=== PATIENT | female | born 1955 | race Two or more races ===

== ENCOUNTER → 2017-08-31 | Emergency (ER) | payer MEDICAID ==
[~2017-08-31] VITALS: Ht 165.1 cm; Wt 68.9 kg
[~2017-08-31] MED LIST: AZITHROMYCIN250 MG ORAL; DICLOFENAC SODI50 MG ORAL; DILAUDID2 MG ORAL; HYDROmorphone 1mg/ml Carpuject IM ONE; IBUPROFEN600 MG ORAL; MYLANTA30 M1 PO; NORCO 5-325 TA1 EACH ORAL; OMEPRAZOLE20 M2 ORAL; ONDANSETRON ODT4 MG ORAL; PERCOCET 5-3251 EACH ORAL
[2017-08-31 23:02] VITALS: BP 125/76
--- NOTE | 2017-08-31 23:48 | Emergency Room Report ---
History of Present Illness General Chief Complaint: Pain Source: Patient Present Illness HPI This is a 61-year-old female who had arthroscopic surgery on her left shoulder yesterday. She was just discharged home with [facility]. She was in the hospital and was getting hydromorphone. She presents with chief complaint of left shoulder pain. Unable to sleep. No fever or chills. no nausea no vomiting. No fever or chills. No redness. Allergies: Coded Allergies: ACETAMINOPHEN (Verified Allergy, Unknown, 08/31/17) HYDROCODONE (Verified Allergy, Unknown, 08/31/17) MORPHINE (Verified Allergy, Unknown, 08/31/17) Uncoded Allergies: PLASTIC TAPE (Allergy, Unknown, 08/31/17) Patient History Past Medical History: see triage record, old chart reviewed Past Surgical History: other Pertinent Family History: none Social History: Denies: smoking Last Menstrual Period: None Now: No Immunizations: other Reviewed Nursing Documentation: PMH: Agreed, PSxH: Agreed Nursing Documentation-PMH Hx Cardiac Problems: Yes - 'I have low blood pressure' Hx Hypertension: No Hx Pacemaker: No Hx Asthma: No Hx COPD: No Hx Diabetes: No Hx Cancer: No Hx Gastrointestinal Problems: No Hx Dialysis: No Hx Neurological Problems: No Hx Cerebrovascular Accident: No Hx Seizures: No Review of Systems Eye: Denies: eye pain, blurred vision ENT: Denies: ear pain, nose congestion, throat swelling Respiratory: Denies: cough, shortness of breath Cardiovascular: Denies: chest pain, palpitations Gastrointestinal: Denies: abdominal pain, diarrhea, nausea, vomiting Musculoskeletal: Reports: joint pain, Denies: back pain Skin: Denies: rash Neurological: Denies: headache, numbness Endocrine: Denies: increased thirst, increased urine Hematologic/Lymphatic: Denies: easy bruising All Other Systems: negative except mentioned in HPI Physical Exam Vital Signs Date Time Temp Pulse Resp B/P (MAP) Pulse Ox O2 Delivery O2 Flow Rate FiO2 08/31/17 23:02 98.2 85 18 125/76 98 Room Air vitals normal Sp02 EP Interpretation: reviewed, normal General Appearance: well appearing, no apparent distress, alert Head: normocephalic, atraumatic Eyes: bilateral eye PERRL, bilateral eye EOMI ENT: hearing grossly normal, normal pharynx Neck: full range of motion, supple, no meningismus Respiratory: chest non-tender, lungs clear, normal breath sounds Cardiovascular #1: regular rate, rhythm, no murmur Gastrointestinal: normal bowel sounds, non tender, no mass, no organomegaly, no bruit, non-distended Musculoskeletal: back normal, gait/station normal, other - left shoulder in dressing and sling. Psychiatric: mood/affect normal Skin: warm/dry Medical Decision Making Diagnostic Impression: Primary Impression: Post-operative pain ER Course Patient with postoperative pain. No evidence of infection. Better after a dose of hydromorphone. We'll discharge home. Last Vital Signs Date Time Temp Pulse Resp B/P (MAP) Pulse Ox O2 Delivery O2 Flow Rate FiO2 08/31/17 23:02 98.2 85 18 125/76 98 Room Air Status: improved Disposition: HOME, SELF-CARE Condition: Stable Scripts Oxycodone/Acetaminophen 5-325* (PERCOCET 5-325 MG TABLET*) 1 Each Tablet 1 TAB ORAL Q6H Y for For Pain, #30 TAB Prov: RAQUEL AGUILA M.D. 08/31/17 Referrals: [facility],REFERRING (PCP) Additional Instructions: Followup your orthopedic Dr. as scheduled. Return if symptom worsen. Ice pack to the area. RAQUEL AGUILA M.D. Aug 31, 2017 23:48
== END | disposition home or self-care (01) ==
LOC: EMR 23:19
DX: G89.18 Other acute postprocedural pain (principal); M25.512 Pain in left shoulder; Z88.6 Allergy status to analgesic agent
CPT/HCPCS: 96372; 99284; J1170

== ENCOUNTER 2019-06-10 11:27 | Inpatient (IN) | payer MEDICAID ==
[~2019-06-10] VITALS: Ht 165.1 cm; Wt 65.8 kg
[~2019-06-10 11:27] MED LIST changes: -HYDROmorphone 1mg/ml Carpuject IM ONE
[2019-06-10 11:45] VITALS: BP 118/78
--- NOTE | 2019-06-10 11:45 | NUR ---
ED Nurse Note: PT WALKED IN TO ER TODAY FROM HOME. AOX4. PT C/O COUGH, HEADACHE, AND SORE THROAT X 3 DAYS AGO. PT STATES SHE WAS SEEN AT AN ER IN [place] AND WAS DIANOSED WITH PNEUMONIA. PT WAS PRESCRIBED AMOXICILLIN-CLAV 875/125MG AND HAS BEEN TAKING MEDICATIONS BUT FEELS SYMPTOMS ARE WORSENING. AT BEDSIDE, RR17, O2 SAT 96% ON RA. NO SIGNS OF RESPIRATORY DISTRESS, RETRACTIONS, OR ACCESSORY MUSCLE USE NOTED. PT AFEBRILE.
--- NOTE | 2019-06-10 12:33 | NUR ---
ED Nurse Note: XRAY AT BEDSIDE BUT PT REFUSED.
--- NOTE | 2019-06-10 12:36 | NUR ---
ED Nurse Note: DR LEE AT BEDSIDE FOR EVALUATION. PT AGREES TO CHEST XRAY.
[2019-06-10] MEDS ORDERED: Albuterol/Ipratropium 3ml neb HHN ONE (12:45)
[2019-06-10] MEDS ORDERED: Ampicillin/Sulbactam Sod 3 GM in NS 110 ML IV SCH (12:45)
--- NOTE | 2019-06-10 12:56 | NUR ---
ED Nurse Note: RT AT BEDSIDE.
--- NOTE | 2019-06-10 13:08 | Diagnostic Imaging Report ---
Indication: Shortness of breath Technique: One view of the chest Comparison: 06/24/2015 Findings: Interim development of retrocardiac consolidation and left basilar atelectasis. Minimal atelectasis is also present at the right lung base. The heart size is normal Impression: Retrocardiac atelectasis and consolidation and left basilar atelectasis Minimal right basilar atelectasis
[2019-06-10 13:16] LABS: BASOPHILS % (AUTO) 1.2 % (0.0-2.0); EOSINOPHILS % (AUTO) 3.2 % (0.0-3.0); HEMATOCRIT 43.9 % (37.0-47.0); HEMOGLOBIN 14.6 G/DL (12.0-16.0); LYMPHOCYTES % (AUTO) 42.9 % (20.0-45.0); MEAN CORPUSCULAR VOLUME 94 FL (80-99); MONOCYTES % (AUTO) 8.4 % (1.0-10.0); NEUTROPHILS % (AUTO) 44.4 % (45.0-75.0); PLATELET COUNT 242 K/UL (150-450); RED BLOOD COUNT 4.69 M/UL (4.20-5.40); RED CELL DISTRIBUTION WIDTH 11.2 % (11.6-14.8); WHITE BLOOD COUNT 6.8 K/UL (4.8-10.8)
[2019-06-10 13:21] LABS: BILIRUBIN, URINE NEGATIVE (NEGATIVE); COLOR,URINE PALE YELLOW; GLUCOSE, URINE (UA) NEGATIVE (NEGATIVE); KETONES,URINE NEGATIVE (NEGATIVE); LEUKOCYTE ESTERASE ,URINE NEGATIVE (NEGATIVE); NITRITE,URINE NEGATIVE (NEGATIVE); PH,URINE 6 (4.5-8.0); PROTEIN,URINE NEGATIVE (NEGATIVE); UROBILINOGEN,URINE NORMAL MG/DL (0.0-1.0)
[2019-06-10 13:25] LABS: APPEARANCE,URINE CLEAR
[2019-06-10 13:27] LABS: ANION GAP 10 mmol/L (5-15); BLOOD UREA NITROGEN 19 mg/dL (7-18); CALCIUM 9.4 MG/DL (8.5-10.1); CARBON DIOXIDE 29 MMOL/L (21-32); CHLORIDE 103 MMOL/L (98-107); CREATININE 0.6 MG/DL (0.55-1.30); SODIUM 141 MMOL/L (136-145)
[2019-06-10 13:42] LABS: ALANINE AMINOTRANSFERASE 33 U/L (12-78); ALBUMIN 3.6 G/DL (3.4-5.0); ALBUMIN/GLOBULIN RATIO 0.8 (1.0-2.7); ALKALINE PHOSPHATASE 57 U/L (46-116); ASPARTATE AMINO TRANSFERASE 33 U/L (15-37); BILIRUBIN,TOTAL 0.3 MG/DL (0.2-1.0); CKMB 0.8 NG/ML (0.0-3.6); CREATINE KINASE 74 U/L (26-308); PHOSPHORUS 4.2 MG/DL (2.5-4.9)
--- NOTE | 2019-06-10 13:59 | Emergency Room Report ---
History of Present Illness General Chief Complaint: Upper Respiratory Illness Source: Patient, Medical Record Present Illness HPI She is a 63-year-old female presented after increased productive cough and difficulty with breathing. Patient had prior history of rheumatoid arthritis and is currently receiving methotrexate therapy. She had last injection yesterday. She had been having some Allergies: Coded Allergies: ACETAMINOPHEN (Verified Allergy, Unknown, 08/31/17) HYDROCODONE (Verified Allergy, Unknown, 08/31/17) MORPHINE (Verified Allergy, Unknown, 08/31/17) Uncoded Allergies: PLASTIC TAPE (Allergy, Unknown, 08/31/17) Patient History Reviewed Nursing Documentation: PMH: Agreed; PSxH: Agreed Nursing Documentation-PMH Hx Cardiac Problems: Yes - 'I have low blood pressure' Hx Hypertension: No Hx Pacemaker: No Hx Asthma: No Hx COPD: No Hx Diabetes: No Hx Cancer: No Hx Gastrointestinal Problems: No Hx Dialysis: No Hx Neurological Problems: No Hx Cerebrovascular Accident: No Hx Seizures: No Review of Systems All Other Systems: negative except mentioned in HPI Physical Exam Vital Signs Date Time Temp Pulse Resp B/P (MAP) Pulse Ox O2 Delivery O2 Flow Rate FiO2 06/10/19 11:38 98.4 81 18 114/82 (93) 92 Room Air 06/10/19 12:56 21 Sp02 EP Interpretation: reviewed, normal General Appearance: normal inspection, alert, mild distress, Chronically Ill Head: atraumatic ENT: normal ENT inspection, hearing grossly normal, normal voice Neck: normal inspection, full range of motion, supple, no bony tend Respiratory: normal inspection, no respiratory distress, no retraction, wheezing Cardiovascular #1: regular rate, rhythm, no edema Gastrointestinal: normal inspection, normal bowel sounds, non tender, soft, no guarding, no hernia Genitourinary: no CVA tenderness Musculoskeletal: normal inspection, back normal, normal range of motion Neurologic: normal inspection, alert, oriented x3, responsive, marine engineer cpvec III-XII nml as tested, speech normal Psychiatric: normal inspection, judgement/insight normal, mood/affect normal Medical Decision Making Diagnostic Impression: Primary Impression: Pneumonia Additional Impression: Rheumatoid arteritis ER Course Patient presented for increased shortness of breath. Differential diagnosis include was not limited to pneumonia, myocardial infarction, pericardial effusion among others. Because of complexity of patient's case laboratory testing and imaging studies were ordered. EKG interpreted by me showed normal sinus rhythm with a rate of [address] or T wave changes. Patient was noted to have significant motion artifact. EKG showed some low voltage QRS. Chest x-ray 1 view read by radiology showed retrocardiac atelectasis and consolidation and left basilar atelectasis. There is also some right basilar atelectasis noted. Patient given IV fluids as well as IV antibiotics and breathing treatments. She is noted to have some improvement in her symptoms. Patient was noted to have prior history of rheumatoid arthritis and methotrexate therapy and given this patient's white blood count is unreliable. Patient was noted to have some improvement after medications. Patient was discussed with physician for [facility] for transfer. Patient will be transferred for continuity of care to [facility]. Labs Test 06/10/19 12:35 06/10/19 13:00 White Blood Count 6.8 K/UL (4.8-10.8) Red Blood Count 4.69 M/UL (4.20-5.40) Hemoglobin 14.6 G/DL (12.0-16.0) Hematocrit 43.9 % (37.0-47.0) Mean Corpuscular Volume 94 FL (80-99) Mean Corpuscular Hemoglobin 31.2 PG (27.0-31.0) Mean Corpuscular Hemoglobin Concent 33.3 G/DL (32.0-36.0) Red Cell Distribution Width 11.2 % (11.6-14.8) Platelet Count 242 K/UL (150-450) Mean Platelet Volume 7.3 FL (6.5-10.1) Neutrophils (%) (Auto) 44.4 % (45.0-75.0) Lymphocytes (%) (Auto) 42.9 % (20.0-45.0) Monocytes (%) (Auto) 8.4 % (1.0-10.0) Eosinophils (%) (Auto) 3.2 % (0.0-3.0) Basophils (%) (Auto) 1.2 % (0.0-2.0) Sodium Level 141 MMOL/L (136-145) Potassium Level 4.0 MMOL/L (3.5-5.1) Chloride Level 103 MMOL/L (98-107) Carbon Dioxide Level 29 MMOL/L (21-32) Anion Gap 10 mmol/L (5-15) Blood Urea Nitrogen 19 mg/dL (7-18) Creatinine 0.6 MG/DL (0.55-1.30) Estimat Glomerular Filtration Rate > 60 mL/min (>60) Glucose Level 116 MG/DL (74-106) Lactic Acid Level 1.20 mmol/L (0.4-2.0) Calcium Level 9.4 MG/DL (8.5-10.1) Phosphorus Level 4.2 MG/DL (2.5-4.9) Magnesium Level 2.0 MG/DL (1.8-2.4) Total Bilirubin 0.3 MG/DL (0.2-1.0) Aspartate Amino Transf (AST/SGOT) 33 U/L (15-37) Alanine Aminotransferase (ALT/SGPT) 33 U/L (12-78) Alkaline Phosphatase 57 U/L (46-116) Total Creatine Kinase 74 U/L (26-308) Creatine Kinase MB 0.8 NG/ML (0.0-3.6) Creatine Kinase MB Relative Index 1.0 Troponin I 0.000 ng/mL (0.000-0.056) Pro-B-Type Natriuretic Peptide 38 pg/mL (0-125) Total Protein 8.1 G/DL (6.4-8.2) Albumin 3.6 G/DL (3.4-5.0) Globulin 4.5 g/dL Albumin/Globulin Ratio 0.8 (1.0-2.7) Urine Color Pale yellow Urine Appearance Clear Urine pH 6 (4.5-8.0) Urine Specific [place] 1.010 (1.005-1.035) Urine Protein Negative (NEGATIVE) Urine Glucose (UA) Negative (NEGATIVE) Urine Ketones Negative (NEGATIVE) Urine Blood 1+ (NEGATIVE) Urine Nitrite Negative (NEGATIVE) Urine Bilirubin Negative (NEGATIVE) Urine Urobilinogen Normal MG/DL (0.0-1.0) Urine Leukocyte Esterase Negative (NEGATIVE) Urine RBC 2-4 /HPF (0 - 2) Urine WBC 0 /HPF (0 - 2) Urine Squamous Epithelial Cells Occasional /LPF Urine Bacteria Occasional /HPF (NONE) Last Vital Signs Date Time Temp Pulse Resp B/P (MAP) Pulse Ox O2 Delivery O2 Flow Rate FiO2 06/10/19 13:04 63 18 100 Room Air 21 06/10/19 11:45 98.2 118/78 Status: unchanged Disposition: XFER SHT-TRM HOSP Condition: Stable Referrals: [facility],REFERRING (PCP) Mehran Cortes MD Jun 10, 2019 13:59
[2019-06-10] MEDS ORDERED: Albuterol/Ipratropium 3ml neb HHN PRN (16:15)
[2019-06-10] MEDS ORDERED: NKM (16:28)
--- NOTE | 2019-06-10 16:28 | NUR ---
ED Nurse Note: TELE UNIT CALLED FOR PT REPORT. TELE UNIT STATES BED IS NOT AVAILABLE AND THAT THEY WILL CALL BACK ONCE ROOM IS READY.
--- NOTE | 2019-06-10 16:34 | NUR ---
ED Nurse Note: TELE UNIT CALLED FOR PT REPORT. REPORT GIVEN TO ALEIDA BRISCOE. ALEIDA BRISCOE READY TO ACCEPT PT. PT TAKEN UP TO TELE UNIT VIA GURNEY ON SAP BASIS WITH ALL BELONGINGS ACCOMPANIED BY PRIMARY RN AND EMT. VSS.
[2019-06-10 17:00] VITALS: BP 135/71
--- NOTE | 2019-06-10 17:08 | NUR ---
NURSE NOTES: Received report from ALEIDA Pulliam. Patient transferred from ED to Tele, conveyor monitor on, IV on left AC 20G, asymptomatic, patent, intact, Belonging list checked with RN, NOY at the time of arrival, BP 135/71, HR 75, RR 20, O2 94%, T 98.7, c/o headache and sore throat 08/22, no active s/s cardiac, respiratory distress noticed at this time, patient on room air. Family member at the bedside, skin is intact, patient stated does not remember name of medication she's been taking at home. Bed in lowest position, side rails upx3, call light within reach. Will continue to monitor.
--- NOTE | 2019-06-10 17:41 | NUR ---
NURSE NOTES: Dr. Waters made aware patient c/o headache, sore throat, requesting pain killer. Per Dr. Waters, Tramadol 50mg PO q6h, prn. Called pharmacy regarding patient's allergy and tramadol. Per pharmacist, tramadol will be okay. Order noted, entered, carried out. Will continue to monitor.
[2019-06-10] MEDS ORDERED: traMADol 50mg tab ORAL PRN (17:45)
[2019-06-10] MEDS ORDERED: Enoxaparin 40mg Inj SUBQ SCH (18:00)
--- NOTE | 2019-06-10 18:30 | NUR ---
CASE MANAGEMENT: REVIEW 63Y/M PRESENTED TO ED FROM HOME CC: SOB SI: PNA . RHEUMATOID ARTHRITIS . T 98.4 HR 81 RR 18 BP 114/82 SAT 92% ROOM AIR BUN 19 GLUCOSE 116 ALBUMIN 0.8 CXR MINIMAL RIGHT BASILAR ATELECTASIS IS: ALBUTEROL HHN X1 NS IVF BOLUS X1 METRONIDAZOLE IV X1 UNASYN IV X1 PATIENT ADMITTED TO TELEMETRY UNIT 06/10/2019 DCP: PATIENT IS FROM HOME
--- NOTE | 2019-06-10 19:42 | NUR ---
HAND-OFF: Report given to ALEIDA Srivastava.
--- NOTE | 2019-06-10 21:00 | NUR ---
HAND-OFF: Report given to Dorota SHIN at [facility] regarding patient transfer due to insurance reasons. Patient was transferred with transport services in stable condition with all V/S within normal limits. All patient belongings were checked and confirmed prior to D/c. Tele box was removed, patient accompanied her during d/c. All medical treatment information that the patient received while here at [place] was printed and given to transport team in discharge folder.
--- NOTE | 2019-06-11 00:30 | History and Physical Report ---
DATE OF ADMISSION: 06/10/2019 REASON FOR ADMISSION: 1. Shortness of breath. 2. Pneumonia. HISTORY OF PRESENT ILLNESS: The patient is a 63-year-old female, who recently was not feeling well last week and actually went to a convention in [place]. Prior to leaving, the patient said she might have the flu. She was given some medication. In [place], the patient continued to feel worse, had a productive cough in the emergency room, and was given amoxicillin. However, the patient did not improve. She then returned back to [place]. Still not feeling well and having a cough and mild shortness of breath, presented to the emergency room for further evaluation and care and noted to possibly have a pneumonia on chest x-ray. As such, she was admitted for further evaluation and care. PAST MEDICAL HISTORY: 1. Rheumatoid arthritis. 2. GERD. PAST SURGICAL HISTORY: Noncontributory. ALLERGIES: Tylenol, hydrocodone, morphine, and plastic tape. FAMILY HISTORY: Positive for hypertension. REVIEW OF SYSTEMS: NEUROLOGIC: The patient denies headache, change in vision, syncope, or presyncopal episodes. CARDIOVASCULAR: No current chest pain, palpitations, or angina. PULMONARY: Mild shortness of breath. Nonproductive cough. GASTROINTESTINAL/GENITOURINARY: No change in urine or bowel habits. No nausea, vomiting, or diarrhea. ENDOCRINOLOGY: No night sweats, fevers, or chills. MUSCULOSKELETAL: The patient is feeling weak, tired, and fatigued. PHYSICAL EXAMINATION: VITAL SIGNS: Blood pressure 105/53, respiratory rate 16, pulse 84, temperature 98.3, and 96% oxygen saturation on room air. GENERAL: The patient is awake, alert, and not in distress. HEENT: Extraocular muscles intact. No lymphadenopathy noted. Oropharyngeal mucosa is clear and dry. CARDIOVASCULAR: S1, S2. No rubs or gallops. Regular rate. PULMONARY: Mild bilateral basilar rales with fair air movement in all lung hughes. Mild expiratory wheezing. ABDOMINAL: Nondistended and nontender. EXTREMITIES: No edema noted. LABORATORY DATA: Laboratories dated 06/10/2019, white cell count 6.8, hemoglobin 14.6, and platelet count 242,000. Sodium 141, potassium 4, and creatinine 0.6. Troponin 0. Urinalysis otherwise negative. ASSESSMENT AND PLAN: 1. Community-acquired pneumonia. At this time, the patient has been given IV antibiotics in the emergency room. We will continue p.o. Levaquin 750 mg p.o. daily. Pulmonary has been consulted for further evaluation and management. 2. Rheumatoid arthritis. The patient had been on methotrexate. As such, she is more susceptible to infections. At this time, the patient has been given ampicillin and metronidazole. We will continue Levaquin in the morning. 3. DVT prophylaxis with Lovenox. 4. GI prophylaxis with famotidine. Hola Waters MD DR: WILL JOB#: [id number] CC:
--- NOTE | 2019-06-11 01:00 | Consultation ---
DATE OF CONSULTATION: 06/10/2019 PULMONARY CONSULTATION CONSULTING PHYSICIAN: Lucas Garduno M.D. HISTORY OF PRESENT ILLNESS: This is a 63-year-old female who was admitted to the hospital with cough and shortness of breath. The patient has a history of rheumatoid arthritis and is currently getting Humira and methotrexate. She came to the hospital with shortness of breath and chest discomfort. The patient is seen and worked up. She had a negative lactic acid. X-ray of chest showed left lung pneumonia. She was admitted to the hospital for further workup and care. ALLERGIES: To acetaminophen, hydrocodone, morphine, and plastic tape. PAST MEDICAL HISTORY: Notable for rheumatoid arthritis only. She is on antibiotic agent and methotrexate. REVIEW OF SYSTEMS: The patient denies any headaches, hematemesis, melena, or hematochezia. PHYSICAL EXAMINATION: GENERAL: Reveals a 63-year-old female. VITAL SIGNS: Blood pressure 140/80, heart rate 74, respirations 18, afebrile, and O2 saturation is 92% on room air. HEENT: Unremarkable. LUNGS: Clear breath sounds bilaterally. ABDOMEN: Soft. LABORATORY AND DIAGNOSTIC DATA: Laboratory testing shows normal CBC and BMP. X-ray of the chest has shown pneumonia. IMPRESSION: 1. Left lung pneumonia. 2. Rheumatoid arthritis. 3. Immunosuppression with Humira and methotrexate. DISCUSSION: We will admit her to the hospital. We will start broad-spectrum antibiotics. a call from her insurance and wanted to transfer to a contracted facility. At this time, she is stable for transfer. We will follow as long as the patient is in the hospital. Lucas Garduno M.D. DR: CRISTOFER JOB#: [id number] CC:
--- NOTE | 2019-06-11 10:06 | Discharge Summary ---
Discharge Summary Discharge Summary _ DATE OF ADMISSION: 06/10/2019 DATE OF DISCHARGE: 06/10/2019 DISCHARGED BY: dr. Torres REASON FOR ADMISSION: 63 years old female with past medical history of GERD, rheumatoid arthritis, was not feeling well last week , but went to [employer] in [place]. Prior to leaving , patient thought, that she might have the flu. She was given some medication. In [place] patient continued to feel worse with productive cough She went to emergency room and received amoxicillin. However, patient did not improve on oral antibiotic. She then returned to [place]. She still was not feeling well , having cough and mild shortness of breath. Patient subsequently presented to emergency room for further evaluation and management. Upon evaluation chest x-ray revealed left-sided pneumonia. Patient was admitted for further evaluation and management. CONSULTANTS: pulmonary Dr. Garduno HOSPITAL COURSE: Patient admitted to telemetry floor. Patient started on empiric antibiotics. [employer] followed. Supplemental oxygen was on board as needed to keep pulse oximetry above 92%. Pulse oximetry was stable on room air. Handheld nebulizing therapy with bronchodilator provided. DVT and GI prophylaxis provided. Patient on weekly methotrexate and Humira for rheumatoid arthritis , which made her more susceptible to different infections. Patient was stable for transfer to [facility] as per insurance. FINAL DIAGNOSES: Community-acquired pneumonia left lung Rheumatoid arthritis Immunosuppression with Humira and methotrexate. DISCHARGE MEDICATIONS: List of medication was sent with patient. DISCHARGE INSTRUCTIONS: Patient was transferred to [facility] as per insurance for further management. I have been assigned to dictate discharge summary for this account. I was not involved in the patient's management. Shonda Fry NP Jun 11, 2019 10:06
== END 2019-06-10 22:45 | disposition critical access hospital, planned readmission (94) | DRG 139 ==
LOC: EMR 12:21 → 2E 15:23 → EDBEDREQ 16:20
DX: J18.9 Pneumonia, unspecified organism (principal); D89.9 Disorder involving the immune mechanism, unspecified; T39.4X5A Adverse effect of antirheumatics, not elsewhere classified, initial encounter; T45.1X5A Adverse effect of antineoplastic and immunosuppressive drugs, initial encounter; K21.9 Gastro-esophageal reflux disease without esophagitis; M06.9 Rheumatoid arthritis, unspecified; Z88.6 Allergy status to analgesic agent
CPT/HCPCS: 36415; 71045; 80053; 81003; 82550; 82553; 83605; 83735; 83880; 84100; 84484; 85025; 87040; 93005; 94640; 94664; 96365; 96366; 96367; 99285; J7620